=== PATIENT | female | born 2005 | race Two or more races ===

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

== ENCOUNTER 2024-05-17 08:14 | Emergency (ER) | payer OTHER, SELFPAY ==
--- NOTE | 2024-05-17 | ECG_ITS ---
Test Reason : CP Blood Pressure : */* mmHG Vent. Rate : 62 BPM Atrial Rate : 62 BPM P-R Int : 136 ms QRS Dur : 82 ms QT Int : 386 ms P-R-T Axes : 75 85 44 degrees QTcB Int : 391 ms Normal sinus rhythm Normal ECG No previous ECGs available Referred By: Generic ED Physician Electronically Signed By: TAB HOLCOMB MD
--- NOTE | ~2024-05-17 | CT_ITS ---
CLINICAL HISTORY: Left flank pain, ureteric stone? CT abdomen and pelvis without contrast Comparison: None Findings: The lung bases are clear. Borderline dilatation of the left renal collecting system. 2 mm nonobstructive calculus within the lower pole of the left kidney. No ureteral calculus. Remaining abdominal organs are unremarkable. There are no calcified gallstones. No bowel obstruction, pneumoperitoneum, or pneumatosis. There is a small amount of pelvic free fluid. Pelvic contents are otherwise unremarkable. The appendix is normal. The bones are intact. IMPRESSION: 1. Borderline dilatation of the left renal collecting system. This raises the possibility of recently passed stone or pyelonephritis. 2. Tiny nonobstructive calculus within the left kidney. This document has been electronically signed by: Jennifer Avina MD on 05/17/2024 13:38:31
[2024-05-17 08:21] VITALS: BP 103/58; PULSE 68; RESP 20; TEMP 37; O2SAT 100; BMI 23.7
[2024-05-17 08:56] LABS: MANUAL DIFF FLAG NO
[2024-05-17 08:57] LABS: Basophils Percent Auto 0.4 % (0-2); Eosinophils Absolute Auto 0.1 X10*3/uL (0.0-0.4); Hemoglobin 13.6 g/dl (12.0-16.0); Imm Gran Abs Auto 0.01 X10*3/uL (0.00-0.03); Imm Gran Pct Auto 0.1 % (0.0-0.4); Lymphocytes Absolute Auto 1.7 X10*3/uL (1.2-4.9); Mean Corpuscular HGB Conc 34.9 g/dl (31.0-35.0); Mean Corpuscular Hemoglobin 29.7 pg (27.0-33.0); Mean Corpuscular Volume 85.2 fL (80.0-98.0); Mean Platelet Volume 9.9 fL (9.4-12.3); Monocytes Absolute Auto 0.4 X10*3/uL (0.1-1.2); Monocytes Percent Auto 6.1 % (2-11); Neutrophils Absolute Auto 4.5 x10*3/uL (2.0-8.3); Neutrophils Percent Auto 67.4 % (45-73); Platelet Count 314 X10*3/uL (160-400); Red Blood Count 4.58 X10*6/uL (4.20-5.50); Red Cell Distribution Width 12.4 % (11.0-16.0); White Blood Count 6.7 X10*3/uL (4.8-10.8)
[2024-05-17 09:00] LABS: Appearance Urine Clear; Color Urine Yellow; Glucose Urine UA Negative (Negative); Leukocyte Esterase Urine Trace (Negative); Nitrite Urine Negative (Negative); PH 5.5 (5.0-9.0); UMIC TRIGGER UACC YES; Urine Blood Negative (Negative); Urine Ketones Negative (Negative); Urine Protein Negative (Neg-Trace)
[2024-05-17 09:01] LABS: Urine Pregnancy NEGATIVE (NEGATIVE)
[2024-05-17 09:02] LABS: UPreg QC Valid YES
[2024-05-17 09:03] LABS: Bacteria Urine Trace (None Seen); Hyaline Casts Urine 0-2 /LPF (0-2); RBC Urine 0-2 /HPF (0-2); WBC Urine 0-5 /HPF (0-5)
[2024-05-17 09:15] LABS: Alanine Aminotransferase 14 U/L (0-31); Albumin Level 4.7 g/dL (3.5-5.0); Alkaline Phosphatase 92 U/L (39-117); Anion Gap 12 (12-20); Aspartate Amino Transferase 18 U/L (5-31); Bilirubin Total 0.5 mg/dL (0.0-1.0); Blood Urea Nitrogen 11 mg/dL (9-16); Calcium 9.7 mg/dL (8.4-10.2); Carbon Dioxide 24 mmol/L (22-29); Chloride 106 mmol/L (96-108); Creatinine Clr Calc Pharmacy 136.6; Estimated Glomerular Filt Rate > 60; Glucose Random 96 mg/dL (60-115); Potassium 3.8 mmol/L (3.3-5.1); Sodium 138 mmol/L (135-145); Total Protein 8.4 g/dL (6.5-8.0)
[2024-05-17 09:23] LABS: Troponin-I High Sensitivity < 2.7 ng/L (<3.5-17.0)
[2024-05-17 09:41] LABS: Influenza A PCR NEGATIVE (Negative); Influenza B PCR NEGATIVE (Negative); Resp Syncy Virus RNA Qual PCR NEGATIVE (Negative); SARS COV2 PCR INHOUSE NEGATIVE (Negative)
[2024-05-17 10:03] LABS: Prothrombin Time 11.1 SEC (10.9-12.4)
--- NOTE | 2024-05-17 10:33 | ED_ITS ---
HPI - General Adult General Chief complaint: General Medical Stated complaint: CP, passed out @ work, abd pain Time Seen by Provider: 05/17/24 10:32 Source: patient Mode of arrival: ambulatory Limitations: no limitations History of Present Illness ED Provider: DR. Brice HPI narrative: 18-year-old female otherwise healthy presented today for evaluation of left lower quadrant abdominal pain started this morning, pain was 10/10 radiating toward the left-sided chest, pain is intermittent, no dysuria, no frequency urination, no hematuria, no fever, no chills, history of kidney stones, patient is sexually active declined chance of being , no risk for STD no vaginal discharge or bleed. Patient had an episode of syncope she thinks that she could not handle the pain and that is why she passed out. Related Data Allergies Allergy/AdvReac Type Severity Reaction Status Date / Time amoxicillin Allergy Hives Verified 05/17/24 08:26 sulfamethoxazole Allergy Hives Verified 05/17/24 08:26 [From Bactrim] trimethoprim [From Bactrim] Allergy Hives Verified 05/17/24 08:26 Review of Systems 2 Review of Systems: All other systems are reviewed and are negative Constitutional: Reports as per HPI and Reports no additional constitutional complaints Eyes: Reports as per HPI and Reports no additional eye complaints Reports system reviewed and no additional complaints, except as documented Cardiovascular: Reports as per HPI and Reports no additional cardiovascular complaints Respiratory: Reports as per HPI and Reports no additional respiratory complaints Gastrointestinal: Reports as per HPI and Reports no additional gastrointestinal complaints Genitourinary: Reports no additional female genitourinary complaints Musculoskeletal: Reports no additional musculoskeletal complaints Skin/Breast: Reports system reviewed and no additional complaints, except as docu Psychiatric: Reports no additional psychiatric complaints Endocrine: Reports no additional endocrine complaints Hematologic/Lymphatic: Reports no additional hematologic/lymphatic complaints Allergic/Immunologic: Reports no additional allergic/immunologic complaints Reports system reviewed and no additional complaints, except as documented and Reports Abnormal speech present [facility] Social History Social History Patient Tobacco Use Status: Never used Tobacco Smoked in Last 30 Days: No Use of substances other than those prescribed or required for medical reasons: No Substance Use Type: Marijuana Advance Directives: No Advance Directives Information Provided: No Physical Exam ED Vital Signs: Vital Signs - 24 hr 05/17/24 08:21 05/17/24 10:34 05/17/24 11:00 Temperature 98.6 F 98.0 F Pulse Rate 68 62 64 Respiratory Rate 20 14 Blood Pressure 103/58 L 129/44 L 103/58 L Pulse Oximetry 100 100 Oxygen Delivery Method Room Air Room Air 05/17/24 11:02 05/17/24 11:04 05/17/24 13:56 Temperature 98.3 F Pulse Rate 69 64 64 Respiratory Rate 18 Blood Pressure 121/72 110/65 110/65 Pulse Oximetry 98 Oxygen Delivery Method Room Air BMI result Body Mass Index 23.7 Vital signs have been reviewed and appear to be correct. Blood pressure elevated. Heart rate normal. Respiratory rate normal. Temperature normal. Oxygen saturation normal. Appearance: Alert. Oriented X3. No acute distress. Head: Normal external exam. Normocephalic. Atraumatic. No Morris signs noted. No raccoon eyes noted Eyes: PERRLA. EOMI. Conjunctiva and sclera normal. Eyelids normal. ENT: TM's Normal. Pharynx normal. Uvula midline. Moist mucous membranes. No trismus noted. No drooling noted. No muffled voice noted. Neck: Normal inspection. Neck supple. FROM. No adenopathy. Thyroid Normal. No meningeal signs. No neck mass noted. CVS: Normal heart rate and rhythm. Heart sound normal. No murmurs noted. Pulses normal throughout. Respiratory: No respiratory distress. Painless inspiration. Breath sounds normal. No wheezes/rales/rhonchi noted. Chest nontender. No accessory muscle usage noted or decreased air movement noted. Abdomen: Soft and nontender. Bowel sounds normal in all 4 quadrants. No distention noted. No organomegaly noted. No visible injury noted. Back: L CVA tenderness. Full range of motion noted. Skin: Skin warm and dry. Normal skin color. Normal skin turgor. No rashes/lesions/lacerations noted. Extremities: No lower extremity edema. Extremities exhibit normal range of motion. Extremities nontender. Neuro: Oriented X 3. Cranial nerve exam: II-XII are grossly intact No motor deficit. No sensory deficit. Reflexes normal. Course Reevaluation(s) Reevaluation #1: 18-year-old female came in after had syncopal episode after severe left-sided abdominal pain/back pain. CT reveals slight increased size of the left kidney which is likely after passing kidney stone, no blood in the urine, no dysuria, no frequency urination, patient has no more episode of of pain or syncope while she is in the emergency department. Probably a passed stone caused severe pain and syncopal episode. Instructed to drink plenty of fluids return if worsening of the symptoms. Time: 13:52 Medications Administered Discontinued Medications Generic Name Dose Route Start Last Admin Trade Name Peterson PRN Reason Stop Dose Admin Sodium Chloride 1,000 mls @ 999 mls/hr 05/17/24 10:43 05/17/24 13:05 Ns IV 05/17/24 11:43 Infused .Q1H1M ONE Infusion Medical Decision Making Differential Diagnosis Differential Diagnoses: The differential diagnosis associated with the presentation includes (Vasovagal, ACS less likely, intra-abdominal pathology causing severe pain, UTI, kidney stone, pyelonephritis, dysrhythmia, .) Admission/Observation Consideration of admission/observation: Escalation of care including admission/observation considered Lab Data MDM Lab Attestation statement: I reviewed the patient's lab results. 05/17/24 08:37 05/17/24 08:37 Labs: Lab Results 05/17/24 05/17/24 05/17/24 Range/Units 08:37 09:50 12:25 WBC 6.7 (4.8-10.8) X10*3/uL RBC 4.58 (4.20-5.50) X10*6/uL Hgb 13.6 (12.0-16.0) g/dl Hct 39.0 (37.0-47.0) % MCV 85.2 (80.0-98.0) fL MCH 29.7 (27.0-33.0) pg MCHC 34.9 (31.0-35.0) g/dl RDW 12.4 (11.0-16.0) % Plt Count 314 (160-400) X10*3/uL MPV 9.9 (9.4-12.3) fL Immature Gran % (Auto) 0.1 (0.0-0.4) % Neut % (Auto) 67.4 (45-73) % Lymph % (Auto) 25.0 (20-40) % [place] % (Auto) 6.1 (2-11) % Eos % (Auto) 1.0 (0-4) % Baso % (Auto) 0.4 (0-2) % Lymph # (Auto) 1.7 (1.2-4.9) X10*3/uL [place] # (Auto) 0.4 (0.1-1.2) X10*3/uL Eos # (Auto) 0.1 (0.0-0.4) X10*3/uL Baso # (Auto) 0.0 (0.0-0.2) X10*3/uL Abs Immat Gran (auto) 0.01 (0.00-0.03) X10*3/uL Absolute Neuts (auto) 4.5 (2.0-8.3) x10*3/uL Absolute Nucleated RBC 0.000 (0.0-0.012) X10*3/uL Nucleated RBC % (auto) 0.0 (0.0-0.2) /100WBC PT 11.1 (10.9-12.4) SEC INR 1.0 (0.9-1.1) D-Dimer High Sensitivty < 150 NG/ML Hold Blue Top SEE NOTE Sodium 138 (135-145) mmol/L Potassium 3.8 (3.3-5.1) mmol/L Chloride 106 (96-108) mmol/L Carbon Dioxide 24 (22-29) mmol/L Anion Gap 12 (12-20) BUN 11 (9-16) mg/dL Creatinine 0.62 (0.5-1.4) mg/dL Estim Creat Clear Calc 136.6 Estimated GFR > 60 Random Glucose 96 (60-115) mg/dL Calcium 9.7 D (8.4-10.2) mg/dL Magnesium 2.0 (1.6-2.6) mg/dL Total Bilirubin 0.5 (0.0-1.0) mg/dL AST 18 (5-31) U/L ALT 14 (0-31) U/L Alkaline Phosphatase 92 (39-117) U/L Troponin I High Sens < 2.7 (<3.5-17.0) ng/L Total Protein 8.4 H (6.5-8.0) g/dL Albumin 4.7 (3.5-5.0) g/dL Urine Color Yellow Urine Appearance Clear Urine pH 5.5 (5.0-9.0) Ur Specific [place] 1.010 (1.005-1.025) Urine Protein Negative (Neg-Trace) mg/dL Urine Glucose (UA) Negative (Negative) mg/dL Urine Ketones Negative (Negative) mg/dL Urine Blood Negative (Negative) Urine Nitrite Negative (Negative) Ur Leukocyte Esterase Trace H (Negative) Urine RBC 0-2 (0-2) /HPF Urine WBC 0-5 (0-5) /HPF Ur Squamous Epith Cells 3-5 (0-2) /HPF Urine Bacteria Trace (None Seen) Hyaline Casts 0-2 (0-2) /LPF Urine Test NEGATIVE (NEGATIVE) Influenza Type A (PCR) NEGATIVE (Negative) Influenza Type B (PCR) NEGATIVE (Negative) RSV RNA Qual (PCR) NEGATIVE (Negative) SARS-CoV-2 RNA (RT-PCR) NEGATIVE (Negative) Independent Interpretation I performed an independent interpretation of an: CT Scan (Abdomen pelvis;Borderline dilatation of the left renal collecting system. 2 mm nonobstructive calculus within the lower pole of the left kidney. No ureteral calculus. Remaining abdominal organs are unremarkable. There are no calcified gallstones. No bowel obstruction, pneumoperitoneum, or pneumat) Radiology Impression Discussion of test interpretation with radiology: I have reviewed the radiologist's reading. Discharge Plan Discharge Clinical Impression: Syncope, vasovagal, Renal colic Patient Disposition: Home, Self-Care Instructions: Renal Colic (ED), Syncope (ED), Syncope in Older Adults (ED) Additional Instructions: Drink plenty of fluids Referrals: Virgie Mack NP [Primary Care Provider] - Stand Alone Forms: Work/School Release Interventions: ED Discharge Assessment Last Done: 05/17/24 13:56 Print Language: Vietnamese
[2024-05-17 10:34] VITALS: BP 129/44; PULSE 62; RESP 14; TEMP 36.7; O2SAT 100
[2024-05-17 10:45] LABS: D Dimer High Sensitivity < 150 NG/ML
[2024-05-17 11:00] VITALS: BP 103/58; PULSE 64
[2024-05-17 11:02] VITALS: BP 121/72; PULSE 69
[2024-05-17 11:04] VITALS: BP 110/65; PULSE 64
[2024-05-17] MEDS: 0.9 % Sodium Chloride 1,000 ML 999 ML IV (11:18)
[2024-05-17 13:56] VITALS: BP 110/65; PULSE 64; RESP 18; TEMP 36.8; O2SAT 98
== END 2024-05-17 14:05 | disposition home or self-care (01) ==
PROVIDERS: Physician Assistant; Emergency Provider Emergency Medicine; PCP Nurse Practitioner Pediatrics
DX: R55 Syncope and collapse (principal); N23 Unspecified renal colic; Z03.818 Encounter for observation for suspected exposure to other biological agents ruled out
CPT/HCPCS: 0241U; 36415; 74176; 80053; 81001; 81025; 83735; 84484; 85025; 85379; 85610; 93005; 96360; 96361; 99284; 99285

== ENCOUNTER → 2024-05-17 08:18 | Outpatient (BNV) | payer OTHER, SELFPAY | PROVIDERS: Emergency Provider Emergency Medicine; PCP Nurse Practitioner Pediatrics; Visit Provider Internal Medicine Cardiovascular Disease | DX: R07.9 Chest pain, unspecified (principal) | CPT/HCPCS: 93010 ==

== ENCOUNTER → 2024-05-17 10:43 | Outpatient (BNV) | payer OTHER, SELFPAY | PROVIDERS: Emergency Provider Emergency Medicine; PCP Nurse Practitioner Pediatrics; Visit Provider Radiology Diagnostic Radiology | DX: N20.0 Calculus of kidney (principal) | CPT/HCPCS: 74176 ==